=== PATIENT | female | born 1960 | race Caucasian/White ===

== ENCOUNTER 2016-08-31 14:29 | Emergency (ER) | payer OTHER ==
[~2016-08-31] VITALS: Ht 165.1 cm; Wt 81.6 kg
[~2016-08-31 14:29] MED LIST: A-CILLIN500 MG PO; ADVAIR 250/501 EA INH; AMITRIPTYLINE25 MG PO; ANAPROX DS550 MG PO; ANTIBIOTIC O500 U/GM TP; ASPIRIN325 MG PO; BACTRIM DS 8001 TA1 PO; BAYER ASPIRIN C81 MG PO; CIPROFLOXACIN500 MG PO; CLARITIN10 MG PO; CYMBALTA30 MG PO; CYMBALTA60 MG; DICYCLOMINE HCL10 MG PO; DOXY 100100 MG PO; DULOXETINE60 MG PO; EPI-PEN1 MG/ML; FIORICET 325 MG1 TAB PO; FLEXERIL10 MG; FLORASTOR 33 MG1 CAP PO; FLUTICAS P0.05 MG/AC NAS; GABAPENTIN300 MG PO; IMITREX100 MG PO; INDERAL LA80 MG PO; KEFLEX500 MG PO; LYRICA75 MG; Lotrimin 1%15 GM T; MAGNESIUM500 MG PO; MAXALT10 MG PO; MEDROL DOSEPAK4 MG PO; METOCLOPRAMIDE10 MG PO; MIDRIN (DURADR1 CAP PO; MOBIC15 MG; MOBIC15 MG PO; MOTRIN800 MG PO; NABUMETONE500 M1 PO; NAPROSYN500 MG PO; NEURONTIN300 MG PO; NEXIUM40 MG PO; NICODERM C21 MG/24 H TD; NORCO 325 MG-51 TAB PO; OMEPRAZOLE10 MG PO; PERCOCET 325 MG1 TA2 PO; PREDNICOT10 MG PO; PREDNICOT20 MG PO; PROVENTIL0.09 MG/AC IH; REQUIP0.5 MG PO; SUMAVEL DO6 MG/0.5 M IJ; SYNTHROID,LEVO50 MCG PO; TOPAMAX2 MG; TOPAMAX25 M1; TRAMADOL HCL50 MG PO; TRAZADONE HYDR100 MG; ULTRAM50 MG PO; VIBRAMYCIN100 MG PO; VICODIN 5/500 505 MG PO; VICODIN 500 MG-1 TAB; VOLTAREN75 MG PO; WELLBUTRIN75 MG PO; XANAX0.5 MG; XANAX1 MG PO; ZANAFLEX4 M1 PO; ZITHROMAX Z PA250 MG PO
[2016-08-31] MEDS ORDERED: HYDROCHLOROTHIA25 M1 PO (14:43)
[2016-08-31] MEDS ORDERED: SUMATRIPTAN SUC50 M1 PO (14:43)
[2016-08-31] MEDS ORDERED: MELOXICAM15 MG PO (14:43)
[2016-08-31 15:18] LABS: BASO % 0.4 % (0.0-1.0); EOS # 0.2 10*3/uL (0.0-0.4); EOS % 3.7 % (1.0-4.0); HEMATOCRIT 37.9 % (37.0-47.0); HEMOGLOBIN 12.8 g/dl (12.0-16.0); LYMPH # 1.9 10*3/uL (1.3-4.4); LYMPH % 34.5 % (27.0-41.0); MEAN CELL VOLUME 93.3 fl (81.0-99.0); MEAN CORPUSCULAR HGB 31.5 pg (27.0-31.0); MEAN CORPUSCULAR HGB CONC 33.8 g/dl (33.0-37.0); MEAN PLATELET VOLUME 9.9 fl (9.6-12.3); MONO # 0.5 10*3/uL (0.1-1.0); MONO % 9.9 % (3.0-9.0); NEUT # 2.8 10*3/uL (2.3-7.9); NEUT % 51.3 % (47.0-73.0); PLATELET COUNT AUTOMATED 237 10*3/uL (130-400); RED BLOOD COUNT 4.06 10*6/uL (4.10-5.10); WHITE BLOOD COUNT 5.5 10*3/uL (4.8-10.8)
[2016-08-31 15:35] LABS: ALBUMIN 3.5 gm/dl (3.1-4.5); ALKALINE PHOSPHATASE 100 U/L (45-117); BILIRUBIN, TOTAL 0.3 mg/dl (0.2-1.0); BUN 18 mg/dl (7-24); CARBON DIOXIDE 28 mmol/L (21-32); CHLORIDE 103 mmol/L (98-107); CPK 94 U/L (26-192); EST GLOM FILT AFRICAN AMERICAN > 60 ml/min; GLUCOSE 89 mg/dL (65-99); MAGNESIUM 2.1 mg/dL (1.5-2.1); POTASSIUM 3.5 mmol/L (3.5-5.1); SGOT/AST 16 IU/L (3-35); SGPT/ALT 23 U/L (12-78); SODIUM 141 mmol/L (136-145); TOTAL PROTEIN 6.8 gm/dL (6.4-8.2)
[2016-08-31 15:36] LABS: CKMB 1.6 ng/ml (0.5-3.6)
[2016-08-31 15:40] LABS: TROPONIN I < 0.015 ng/ml (<0.045)
[2016-08-31 16:15] LABS: BILIRUBIN NEGATIVE (NEGATIVE); BLOOD NEGATIVE (NEGATIVE); COLOR YELLOW (YELLOW); GLUCOSE NEGATIVE (NEGATIVE); KETONE NEGATIVE (NEGATIVE); LEUKO ESTERASE NEGATIVE (NEGATIVE); NITRITE NEGATIVE (NEGATIVE); PROTEIN NEGATIVE (NEGATIVE)
[2016-08-31 16:23] LABS: BACTERIA 2+; CLARITY SL CLOUDY (CLEAR)
[2016-08-31 16:24] LABS: URINE REFLEX COMMENT YES (NO)
[2016-08-31] MEDS ORDERED: MECLIZINE HCL25 M2 PO (18:25)
[2016-08-31] MEDS ORDERED: AUGMENTIN 875-875 MG PO (18:25)
== END 2016-08-31 18:32 | disposition home or self-care (01) ==
LOC: ED 14:29
PROVIDERS: Nurse Practitioner Family
DX: R42 Dizziness and giddiness (principal); H65.92 Unspecified nonsuppurative otitis media, left ear; R10.13 Epigastric pain; F17.200 Nicotine dependence, unspecified, uncomplicated; Z98.890 Other specified postprocedural states; Z79.899 Other long term (current) drug therapy; Z91.038 Other insect allergy status

== ENCOUNTER → 2016-11-08 | Outpatient (CLI) | payer OTHER ==
[~2016-11-08] MED LIST changes: +AUGMENTIN 875-875 MG PO; +HYDROCHLOROTHIA25 M1 PO; +MECLIZINE HCL25 M2 PO; +MELOXICAM15 MG PO; +SUMATRIPTAN SUC50 M1 PO
== END | disposition home or self-care (01) ==
LOC: RAD 10:43
DX: M54.2 Cervicalgia (principal); M54.5 Low back pain

== ENCOUNTER 2016-11-22 07:01 | Emergency (ER) | payer OTHER ==
[~2016-11-22] VITALS: Ht 165.1 cm; Wt 81.6 kg
[~2016-11-22 07:01] MED LIST changes: -PREDNISONE50 MG PO; -PRILOSEC20 M1 PO
[2016-11-22] MEDS ORDERED: PRILOSEC20 M1 PO (07:13)
[2016-11-22] MEDS ORDERED: PREDNISONE50 MG PO (07:53)
== END 2016-11-22 07:58 | disposition home or self-care (01) ==
LOC: ED 07:01
DX: L24.7 Irritant contact dermatitis due to plants, except food (principal); F17.200 Nicotine dependence, unspecified, uncomplicated; Z91.030 Bee allergy status; Z79.899 Other long term (current) drug therapy

== ENCOUNTER → 2016-11-22 | Outpatient (CLI) | payer OTHER ==
[~2016-11-22] MED LIST changes: +PREDNISONE50 MG PO; +PRILOSEC20 M1 PO
[2016-11-22 07:17] LABS: BASO % 0.3 % (0.0-1.0); EOS # 0.3 10*3/uL (0.0-0.4); EOS % 4.7 % (1.0-4.0); HEMATOCRIT 38.7 % (37.0-47.0); HEMOGLOBIN 12.9 g/dl (12.0-16.0); LYMPH % 30.9 % (27.0-41.0); MEAN CELL VOLUME 94.2 fl (81.0-99.0); MEAN CORPUSCULAR HGB 31.4 pg (27.0-31.0); MEAN CORPUSCULAR HGB CONC 33.3 g/dl (33.0-37.0); MEAN PLATELET VOLUME 9.8 fl (9.6-12.3); MONO # 0.5 10*3/uL (0.1-1.0); MONO % 7.4 % (3.0-9.0); NEUT # 3.6 10*3/uL (2.3-7.9); NEUT % 56.4 % (47.0-73.0); PLATELET COUNT AUTOMATED 285 10*3/uL (130-400); RED BLOOD COUNT 4.11 10*6/uL (4.10-5.10); RED CELL DISTRI WIDTH 13.4 % (0-14.5); WHITE BLOOD COUNT 6.3 10*3/uL (4.8-10.8)
[2016-11-22 07:24] LABS: BILIRUBIN NEGATIVE (NEGATIVE); BLOOD NEGATIVE (NEGATIVE); COLOR YELLOW (YELLOW); GLUCOSE NEGATIVE (NEGATIVE); KETONE NEGATIVE (NEGATIVE); LEUKO ESTERASE NEGATIVE (NEGATIVE); NITRITE NEGATIVE (NEGATIVE); PROTEIN NEGATIVE (NEGATIVE); SPECIFIC GRAVITY 1.015 (1.005-1.030); UROBILINOGEN 0.2 E.U./dl (0.2-1.0)
[2016-11-22 07:42] LABS: ALBUMIN 3.5 gm/dl (3.1-4.5); BILIRUBIN, TOTAL 0.3 mg/dl (0.2-1.0); BUN 13 mg/dl (7-24); CARBON DIOXIDE 29 mmol/L (21-32); CHLORIDE 104 mmol/L (98-107); CHOLESTEROL 244 mg/dL (<200); EST GLOM FILT AFRICAN AMERICAN > 60 ml/min; GLUCOSE 111 mg/dL (65-99); POTASSIUM 4.1 mmol/L (3.5-5.1); SGOT/AST 19 IU/L (3-35); SGPT/ALT 27 U/L (12-78); SODIUM 143 mmol/L (136-145); TRIGLYCERIDES 129 mg/dl (<150); VLDL CHOLESTEROL 26 mg/dL (6-40)
[2016-11-22 07:51] LABS: ALKALINE PHOSPHATASE 114 U/L (45-117); HDL CHOLESTEROL 53 mg/dl (40-60); LDL CHOLESTEROL 165 mg/dL (9-159)
[2016-11-22 10:32] LABS: CLARITY SL CLOUDY (CLEAR)
[2016-11-22 10:33] LABS: BACTERIA 1+
== END | disposition home or self-care (01) ==
LOC: LAB 06:36
PROVIDERS: Nurse Practitioner Family
DX: I10 Essential (primary) hypertension (principal); E03.9 Hypothyroidism, unspecified

== ENCOUNTER → 2017-03-11 | Outpatient (CLI) | payer OTHER ==
[~2017-03-11] MED LIST changes: +PREDNISONE50 MG PO; +PRILOSEC20 M1 PO
[2017-03-11 07:25] LABS: BASO % 0.4 % (0.0-1.0); EOS # 0.2 10*3/uL (0.0-0.4); EOS % 2.2 % (1.0-4.0); HEMATOCRIT 40.5 % (37.0-47.0); HEMOGLOBIN 13.4 g/dl (12.0-16.0); LYMPH # 3.1 10*3/uL (1.3-4.4); LYMPH % 43.6 % (27.0-41.0); MEAN CELL VOLUME 93.8 fl (81.0-99.0); MEAN CORPUSCULAR HGB CONC 33.1 g/dl (33.0-37.0); MEAN PLATELET VOLUME 9.4 fl (9.6-12.3); MONO # 0.6 10*3/uL (0.1-1.0); MONO % 8.1 % (3.0-9.0); NEUT # 3.3 10*3/uL (2.3-7.9); NEUT % 45.4 % (47.0-73.0); PLATELET COUNT AUTOMATED 285 10*3/uL (130-400); RED BLOOD COUNT 4.32 10*6/uL (4.10-5.10); RED CELL DISTRI WIDTH 14.1 % (0-14.5); WHITE BLOOD COUNT 7.2 10*3/uL (4.8-10.8)
[2017-03-11 07:46] LABS: ALBUMIN 3.3 gm/dl (3.1-4.5); ALKALINE PHOSPHATASE 104 U/L (45-117); BUN 22 mg/dl (7-24); CHLORIDE 104 mmol/L (98-107); CHOLESTEROL 211 mg/dL (<200); CREATININE 0.75 mg/dL (0.55-1.02); HDL CHOLESTEROL 69 mg/dl (40-60); LDL CHOLESTEROL 114 mg/dL (9-159); POTASSIUM 3.7 mmol/L (3.5-5.1); SGOT/AST 16 IU/L (3-35); SGPT/ALT 34 U/L (12-78); SODIUM 140 mmol/L (136-145); TRIGLYCERIDES 141 mg/dl (<150); VLDL CHOLESTEROL 28 mg/dL (6-40)
== END | disposition home or self-care (01) ==
LOC: LAB 07:02 → US 07:30
PROVIDERS: Nurse Practitioner Family
DX: I10 Essential (primary) hypertension (principal); E03.9 Hypothyroidism, unspecified; E66.9 Obesity, unspecified; R03.0 Elevated blood-pressure reading, without diagnosis of hypertension; K76.0 Fatty (change of) liver, not elsewhere classified; R10.11 Right upper quadrant pain

== ENCOUNTER 2017-03-31 19:02 | Emergency (ER) | payer OTHER ==
[~2017-03-31] VITALS: Ht 165.1 cm; Wt 81.6 kg
[2017-03-31] MEDS ORDERED: MEDROL DOSEPAK4 MG PO (19:50)
[2017-03-31] MEDS ORDERED: EPIPEN 2-P0.3 MG/0.3 IJ (19:50)
== END 2017-03-31 20:29 | disposition home or self-care (01) ==
LOC: ED 19:02
DX: T63.441A Toxic effect of venom of bees, accidental (unintentional), initial encounter (principal); F17.200 Nicotine dependence, unspecified, uncomplicated; Z98.890 Other specified postprocedural states; Z79.899 Other long term (current) drug therapy; Z91.030 Bee allergy status; Y92.9 Unspecified place or not applicable

== ENCOUNTER → 2017-06-25 | Outpatient (CLI) | payer MEDICARE, MEDICAID ==
[~2017-06-25] MED LIST changes: +EPIPEN 2-P0.3 MG/0.3 IJ
[2017-06-25 08:41] LABS: BASO % 0.5 % (0.0-1.0); EOS # 0.3 10*3/uL (0.0-0.4); EOS % 4.3 % (1.0-4.0); HEMOGLOBIN 13.6 g/dl (12.0-16.0); LYMPH # 2.1 10*3/uL (1.3-4.4); LYMPH % 35.5 % (27.0-41.0); MEAN CELL VOLUME 90.9 fl (81.0-99.0); MEAN CORPUSCULAR HGB 30.9 pg (27.0-31.0); MEAN PLATELET VOLUME 9.8 fl (9.6-12.3); MONO # 0.5 10*3/uL (0.1-1.0); MONO % 8.6 % (3.0-9.0); NEUT % 50.8 % (47.0-73.0); PLATELET COUNT AUTOMATED 267 10*3/uL (130-400); RED CELL DISTRI WIDTH 13.5 % (0-14.5); WHITE BLOOD COUNT 5.8 10*3/uL (4.8-10.8)
[2017-06-25 09:01] LABS: BILIRUBIN NEGATIVE (NEGATIVE); BLOOD NEGATIVE (NEGATIVE); CLARITY CLEAR (CLEAR); COLOR YELLOW (YELLOW); GLUCOSE NEGATIVE (NEGATIVE); KETONE NEGATIVE (NEGATIVE); LEUKO ESTERASE NEGATIVE (NEGATIVE); NITRITE NEGATIVE (NEGATIVE); PH 5.5 (5.0-9.0); SPECIFIC GRAVITY 1.025 (1.005-1.030)
[2017-06-25 09:14] LABS: ALBUMIN 3.7 gm/dl (3.1-4.5); ALKALINE PHOSPHATASE 105 U/L (45-117); BUN 25 mg/dl (7-24); CHLORIDE 106 mmol/L (98-107); CHOLESTEROL 238 mg/dL (<200); CREATININE 0.73 mg/dL (0.55-1.02); HDL CHOLESTEROL 54 mg/dl (40-60); LDL CHOLESTEROL 168 mg/dL (9-159); POTASSIUM 3.7 mmol/L (3.5-5.1); SGOT/AST 23 IU/L (3-35); SGPT/ALT 35 U/L (12-78); SODIUM 140 mmol/L (136-145); TOTAL PROTEIN 7.2 gm/dL (6.4-8.2); TRIGLYCERIDES 80 mg/dl (<150); VLDL CHOLESTEROL 16 mg/dL (6-40)
[2017-06-25 09:21] LABS: THYROID STIM HORMONE (HS) 0.842 uIU/ml (0.358-4.75)
[2017-06-25 09:26] LABS: BACTERIA TRACE; MUCOUS 1+
== END | disposition home or self-care (01) ==
LOC: LAB 08:16
PROVIDERS: Nurse Practitioner Family
DX: E03.9 Hypothyroidism, unspecified (principal); E78.4 Other hyperlipidemia; I10 Essential (primary) hypertension

== ENCOUNTER → 2017-10-07 | Outpatient (CLI) | payer MEDICARE, MEDICAID ==
[2017-10-07 08:06] LABS: BASO % 0.5 % (0.0-1.0); EOS # 0.3 10*3/uL (0.0-0.4); EOS % 5.8 % (1.0-4.0); HEMATOCRIT 39.8 % (37.0-47.0); HEMOGLOBIN 13.1 g/dl (12.0-16.0); LYMPH # 1.3 10*3/uL (1.3-4.4); LYMPH % 30.1 % (27.0-41.0); MEAN CORPUSCULAR HGB 30.6 pg (27.0-31.0); MEAN CORPUSCULAR HGB CONC 32.9 g/dl (33.0-37.0); MEAN PLATELET VOLUME 10.1 fl (9.6-12.3); MONO # 0.6 10*3/uL (0.1-1.0); MONO % 13.8 % (3.0-9.0); NEUT # 2.1 10*3/uL (2.3-7.9); NEUT % 49.6 % (47.0-73.0); PLATELET COUNT AUTOMATED 243 10*3/uL (130-400); RED BLOOD COUNT 4.28 10*6/uL (4.10-5.10); RED CELL DISTRI WIDTH 13.9 % (0-14.5); WHITE BLOOD COUNT 4.3 10*3/uL (4.8-10.8)
[2017-10-07 08:33] LABS: CHLORIDE 107 mmol/L (98-107); POTASSIUM 3.7 mmol/L (3.5-5.1); SODIUM 141 mmol/L (136-145)
[2017-10-07 08:59] LABS: ALKALINE PHOSPHATASE 102 U/L (45-117); CHOLESTEROL 189 mg/dL (<200); CREATININE 0.79 mg/dL (0.55-1.02); HDL CHOLESTEROL 44 mg/dl (40-60); SGOT/AST 23 IU/L (3-35); SGPT/ALT 35 U/L (12-78); TOTAL PROTEIN 6.8 gm/dL (6.4-8.2)
[2017-10-07 09:16] LABS: ALBUMIN 3.4 gm/dl (3.1-4.5); BUN 17 mg/dl (7-24); LDL CHOLESTEROL 127 mg/dL (9-159); TRIGLYCERIDES 92 mg/dl (<150); VLDL CHOLESTEROL 18 mg/dL (6-40)
== END | disposition home or self-care (01) ==
LOC: LAB 07:29
PROVIDERS: Nurse Practitioner Family
DX: E03.9 Hypothyroidism, unspecified (principal); E78.4 Other hyperlipidemia; F41.9 Anxiety disorder, unspecified; R03.0 Elevated blood-pressure reading, without diagnosis of hypertension

== ENCOUNTER → 2018-03-17 | Outpatient (CLI) | payer MEDICARE, MEDICAID ==
[~2018-03-17] MED LIST changes: +24 HOUR ALLER15.8 ML NAS; +CELEBREX100 MG PO; +CRESTOR10 M1 PO; +CYCLOBENZAPRINE10 MG PO; -CYMBALTA30 MG PO; +CYMBALTA60 MG PO; +IMITREX25 M1 PO; +LISINOPRIL10 M1 PO; +NEURONTIN800 MG PO; +OMEPRAZOLE40 MG PO; +VISTARIL50 MG PO
--- NOTE | ~2018-03-17 | EKG ---
[place], [place] ELECTROCARDIOGRAM REPORT NAME: RAY ROSENTHAL UNIT #: [id number] ROOM: DOCTOR: BLADE DRAFT REPORT BIRTHDATE: [birth year] [facility] Test Date: 2018-03-17 Test Time: 12:07:51 Pat Name: RAY ROSENTHAL Department: Room: Gender: F [employer] Caretaker: ARIAN : 1960 Requested By: STEPHANIE VELASCO Order Number: [id number] Reading MD: Measurements Intervals [place] Rate: 85 P: 71 MN: 155 QRS: 56 QRSD: 105 T: 58 QT: 381 QTc: 453 Interpretive Statements Sinus rhythm Consider left atrial enlargement Minimal ST depression, anterolateral leads No previous ECG available for comparison CM:EKGRPT:ELECTROCARDIOGRAM REPORT [id number] STEPHANIE VELASCO EPIPHANY DRAFT REPORT STEPHANIE VELASCO
== END | disposition home or self-care (01) ==
LOC: CARD 11:34
DX: I10 Essential (primary) hypertension (principal); E78.49 Other hyperlipidemia; R11.0 Nausea

== ENCOUNTER → 2018-06-23 | Outpatient (CLI) | payer MEDICARE, MEDICAID ==
[2018-06-23 09:27] LABS: HEMATOCRIT 39.8 % (37.0-47.0); HEMOGLOBIN 13.3 g/dl (12.0-16.0); MEAN CELL VOLUME 94.5 fl (81.0-99.0); MEAN CORPUSCULAR HGB 31.6 pg (27.0-31.0); MEAN CORPUSCULAR HGB CONC 33.4 g/dl (33.0-37.0); MEAN PLATELET VOLUME 10.3 fl (9.6-12.3); RED BLOOD COUNT 4.21 10*6/uL (4.10-5.10); RED CELL DISTRI WIDTH 13.2 % (0-14.5); WHITE BLOOD COUNT 5.4 10*3/uL (4.8-10.8)
[2018-06-23 09:54] LABS: ALBUMIN 3.3 gm/dl (3.1-4.5); ALKALINE PHOSPHATASE 113 U/L (45-117); BUN 18 mg/dl (7-24); CHLORIDE 105 mmol/L (98-107); CHOLESTEROL 149 mg/dL (<200); CREATININE 0.73 mg/dL (0.55-1.02); HDL CHOLESTEROL 50 mg/dl (40-60); LDL CHOLESTEROL 79 mg/dL (9-159); SGOT/AST 23 IU/L (3-35); SGPT/ALT 41 U/L (12-78); SODIUM 140 mmol/L (136-145); TOTAL PROTEIN 7.1 gm/dL (6.4-8.2); TRIGLYCERIDES 98 mg/dl (<150); VLDL CHOLESTEROL 20 mg/dL (6-40)
== END | disposition home or self-care (01) ==
LOC: LAB 08:25
PROVIDERS: Registered Nurse Flight
DX: I10 Essential (primary) hypertension (principal); E78.5 Hyperlipidemia, unspecified; E03.9 Hypothyroidism, unspecified; R73.03 Prediabetes

== ENCOUNTER → 2018-07-31 | Outpatient (CLI) | payer MEDICARE, MEDICAID | END | disposition home or self-care (01) | LOC: RAD 13:20 | DX: M81.0 Age-related osteoporosis without current pathological fracture (principal); M79.642 Pain in left hand; M79.641 Pain in right hand; M54.2 Cervicalgia ==

== ENCOUNTER → 2018-11-13 | Outpatient (CLI) | payer MEDICARE, MEDICAID ==
[2018-11-13 09:02] LABS: HEMATOCRIT 38.5 % (37.0-47.0); HEMOGLOBIN 12.7 g/dl (12.0-16.0); MEAN CELL VOLUME 94.4 fl (81.0-99.0); MEAN CORPUSCULAR HGB 31.1 pg (27.0-31.0); MEAN PLATELET VOLUME 10.3 fl (9.6-12.3); RED BLOOD COUNT 4.08 10*6/uL (4.10-5.10); RED CELL DISTRI WIDTH 13.1 % (0-14.5); WHITE BLOOD COUNT 6.4 10*3/uL (4.8-10.8)
[2018-11-13 09:29] LABS: ALBUMIN 3.5 gm/dl (3.1-4.5); ALKALINE PHOSPHATASE 103 U/L (45-117); BUN 26 mg/dl (7-24); CHLORIDE 107 mmol/L (98-107); CHOLESTEROL 134 mg/dL (<200); CREATININE 0.84 mg/dL (0.55-1.02); HDL CHOLESTEROL 50 mg/dl (40-60); LDL CHOLESTEROL 60 mg/dL (9-159); POTASSIUM 4.1 mmol/L (3.5-5.1); SGOT/AST 21 IU/L (3-35); SGPT/ALT 43 U/L (12-78); SODIUM 140 mmol/L (136-145); TOTAL PROTEIN 7.1 gm/dL (6.4-8.2); TRIGLYCERIDES 118 mg/dl (<150); VLDL CHOLESTEROL 24 mg/dL (6-40)
== END | disposition home or self-care (01) ==
LOC: LAB 08:37
PROVIDERS: Registered Nurse Flight
DX: M47.817 Spondylosis without myelopathy or radiculopathy, lumbosacral region (principal); E11.65 Type 2 diabetes mellitus with hyperglycemia; E03.9 Hypothyroidism, unspecified; E78.5 Hyperlipidemia, unspecified

== ENCOUNTER 2021-01-17 10:22 | Emergency (ER) | payer OTHER ==
[~2021-01-17] VITALS: Wt 88.5 kg
[2021-01-17 11:28] LABS: BASO % 0.4 % (0.0-1.0); EOS # 0.1 10*3/uL (0.0-0.4); EOS % 1.3 % (1.0-4.0); HEMATOCRIT 40.8 % (37.0-47.0); LYMPH # 1.5 10*3/uL (1.3-4.4); MEAN CELL VOLUME 91.3 fl (81.0-99.0); MEAN CORPUSCULAR HGB 30.4 pg (27.0-31.0); MEAN CORPUSCULAR HGB CONC 33.3 g/dl (33.0-37.0); MEAN PLATELET VOLUME 9.9 fl (9.6-12.3); MONO # 0.4 10*3/uL (0.1-1.0); MONO % 5.8 % (3.0-9.0); NEUT # 4.9 10*3/uL (2.3-7.9); NEUT % 71.2 % (47.0-73.0); PLATELET COUNT AUTOMATED 272 10*3/uL (130-400); RED BLOOD COUNT 4.47 10*6/uL (4.10-5.10); RED CELL DISTRI WIDTH 14.2 % (0-14.5); WHITE BLOOD COUNT 6.9 10*3/uL (4.8-10.8)
[2021-01-17 11:45] LABS: BILIRUBIN Negative (Negative); BLOOD Negative (Negative); CLARITY Clear (Clear); COLOR Dark Yellow (Yellow); GLUCOSE Trace (Negative); KETONE Trace (Negative); LEUKO ESTERASE Trace (Negative); NITRITE Negative (Negative); PH 5.5 (4.5-8.0); SPECIFIC GRAVITY >= 1.030 (1.001-1.030)
[2021-01-17 11:52] LABS: ALBUMIN 3.7 gm/dl (3.1-4.5); ALKALINE PHOSPHATASE 95 U/L (45-117); BUN 13 mg/dl (7-24); CHLORIDE 105 mmol/L (98-107); CREATININE 0.64 mg/dL (0.55-1.02); LIPASE 102 U/L (73-393); POTASSIUM 3.6 mmol/L (3.5-5.1); SGOT/AST 78 IU/L (3-35); SGPT/ALT 109 U/L (12-78); SODIUM 138 mmol/L (136-145); TOTAL PROTEIN 7.8 gm/dL (6.4-8.2)
[2021-01-17 11:55] LABS: TROPONIN I < 0.015 ng/ml (<0.045)
[2021-01-17 12:28] LABS: BACTERIA 2+; MUCOUS 1+
== END 2021-01-17 14:42 | disposition home or self-care (01) ==
LOC: ED 10:22
PROVIDERS: Emergency Medicine
DX: K29.70 Gastritis, unspecified, without bleeding (principal); R73.9 Hyperglycemia, unspecified; Z91.013 Allergy to seafood; Z91.048 Other nonmedicinal substance allergy status; Z79.899 Other long term (current) drug therapy; Z98.890 Other specified postprocedural states; Z96.651 Presence of right artificial knee joint